=== PATIENT | female | born 1955 | race Caucasian/White ===

== ENCOUNTER 2017-11-25 16:14 | Emergency (ER) | payer MEDICARE, OTHER ==
[~2017-11-25] VITALS: Ht 157.5 cm; Wt 57.0 kg
[~2017-11-25 16:14] MED LIST: WHIT15OI
[2017-11-25 16:18] VITALS: BP 128/75; PULSE 72; RESP 18; TEMP 97.3; O2SAT 100
[2017-11-25] MEDS ORDERED: ALUMINUM/MAGNESIUM/SIMETH 30 ML CUP PO ONE (16:45)
[2017-11-25] MEDS ORDERED: ONDANSETRON ODT 4 MG TAB PO ONE (16:45)
[2017-11-25] MEDS ORDERED: LIDOCAINE VISCOUS 2% SOLN 15 ML UDC PO ONE (16:45)
[2017-11-25] MEDS ORDERED: LATA0.002 RIGHT EYE (16:56)
[2017-11-25] MEDS ORDERED: PRED1SUS LEFT EYE (16:56)
[2017-11-25] MEDS ORDERED: ATRO1SOL11 LEFT EYE (16:56)
[2017-11-25] MEDS ORDERED: DORZ2SOL15 RIGHT EYE (16:56)
--- NOTE | 2017-11-25 16:56 | PD ---
HPI Chief Complaint: Abdominal Pain Time Seen by Provider: 16:30 Travel History International Travel<30 days: No Contact w/Intl Traveler<30days: No Traveled to known affect area: No History of Present Illness HPI 61yo F with PMH of ectopic and glaucoma here with c/o abdominal pain since 9am. Pt said pain is epigastric but it radiates out. It is sharp, constant. +Nausea and vomiting. Denies any fever, chest pain, sob, dysuria, hematuria, diarrhea, vaginal discharge, focal weakness or numbness. Pt did not take anything for pain at home. PFSH Past Medical History ?: Not Ectopic : Yes (AGE 35) Social History Alcohol Use: Yes (SOCIALLY) Tobacco Use: Yes ([employer]) Substance Use: No Allergies-Medications (Allergen,Severity, Reaction): Coded Allergies: niacin (Verified Allergy, Intermediate, 11/25/17) BLADDER PAIN Uncoded Allergies: CITRIS FRUITS (Allergy, Severe, Itching, 03/12/14) VITAMIN B (Allergy, Intermediate, 11/25/17) BLADDER PAIN Reported Meds & Prescriptions Reported Meds & Active Scripts Active Omeprazole 40 Mg Cap 40 Mg PO DAILY 5 Days Zofran Odt (Ondansetron Odt) 4 Mg Tab 4 Mg SL Q12HR PRN Bactrim DS (Sulfamethoxazole-Trimethoprim) 800-160 Mg Tab 1 Tab PO BID Reported Dorzolamide-Timolol Opth Drops 22.3-6.8 Mg/Ml Soln 1 Drop RIGHT EYE BID Latanoprost Opth Drops (Latanoprost) 0.005% Drops 1 Drop RIGHT EYE HS Refrigerate until opened. Atropine Opth Drops 1% Soln 1 Drop LEFT EYE Q12H Pred Forte Opth 1% (Prednisolone Acetate Opth 1%) 1% Susp 1 Drop LEFT EYE QID Review of Systems Except as stated in HPI: all other systems reviewed are Neg Physical Exam Narrative GENERAL: 61yo F not in distress. SKIN: Focused skin assessment warm/dry. HEAD: Atraumatic. Normocephalic. EYES: Pupils equal and round. No scleral icterus. No injection or drainage. ENT: No nasal bleeding or discharge. Mucous membranes pink and moist. NECK: Trachea midline. No JVD. CARDIOVASCULAR: Regular rate and rhythm. No murmur appreciated. RESPIRATORY: No accessory muscle use. Clear to auscultation. Breath sounds equal bilaterally. GASTROINTESTINAL: Abdomen soft, +TTP epigastric region. Mild LUQ ttp. No rebound tenderness or guarding. MUSCULOSKELETAL: No obvious deformities. No clubbing. No cyanosis. No edema. NEUROLOGICAL: Awake and alert. No obvious cranial nerve deficits. Motor grossly within normal limits. Normal speech. PSYCHIATRIC: Appropriate mood and affect; insight and judgment normal. Data Data Last Documented VS Vital Signs Date Time Temp Pulse Resp B/P (MAP) Pulse Ox O2 Delivery O2 Flow Rate FiO2 11/25/17 19:02 18 11/25/17 18:28 76 124/75 (91) 98 Room Air 11/25/17 16:18 97.3 Orders Orders Complete Blood Count With Diff (11/25/17 16:39) Comprehensive Metabolic Panel (11/25/17 16:39) Lipase (11/25/17 16:39) Urinalysis - C+S If Indicated (11/25/17 16:39) Al-Mag Hy-Si 40-40-4 Mg/Ml Liq (Mag-Al P (11/25/17 16:45) Lidocaine 2% Viscous (Xylocaine 2% Visco (11/25/17 16:45) Ondansetron Odt (Zofran Odt) (11/25/17 16:45) Ct Abd/Pel W Iv Contrast(Rout) (11/25/17 ) Ketorolac Inj (Toradol Inj) (11/25/17 18:00) Urine Culture (11/25/17 17:55) Iohexol 350 Inj (Omnipaque 350 Inj) (11/25/17 18:41) Sulfamet-Trimeth Ds 800-160 Mg (Bactrim (11/25/17 19:00) Ed Discharge Order (11/25/17 19:04) Labs Laboratory Tests Test 11/25/17 16:50 11/25/17 17:55 White Blood Count 13.3 TH/MM3 Red Blood Count 5.07 MIL/MM3 Hemoglobin 14.7 GM/DL Hematocrit 44.3 % Mean Corpuscular Volume 87.2 FL Mean Corpuscular Hemoglobin 29.0 PG Mean Corpuscular Hemoglobin Concent 33.2 % Red Cell Distribution Width 11.7 % Platelet Count 263 TH/MM3 Mean Platelet Volume 8.1 FL Neutrophils (%) (Auto) 86.2 % Lymphocytes (%) (Auto) 9.6 % Monocytes (%) (Auto) 2.6 % Eosinophils (%) (Auto) 1.0 % Basophils (%) (Auto) 0.6 % Neutrophils # (Auto) 11.5 TH/MM3 Lymphocytes # (Auto) 1.3 TH/MM3 Monocytes # (Auto) 0.3 TH/MM3 Eosinophils # (Auto) 0.1 TH/MM3 Basophils # (Auto) 0.1 TH/MM3 CBC Comment DIFF FINAL Differential Comment Blood Urea Nitrogen 12 MG/DL Creatinine 0.78 MG/DL Random Glucose 110 MG/DL Total Protein 7.6 GM/DL Albumin 4.0 GM/DL Calcium Level 9.3 MG/DL Alkaline Phosphatase 98 U/L Aspartate Amino Transf (AST/SGOT) 23 U/L Alanine Aminotransferase (ALT/SGPT) 29 U/L Total Bilirubin 1.2 MG/DL Sodium Level 140 MEQ/L Potassium Level 3.5 MEQ/L Chloride Level 105 MEQ/L Carbon Dioxide Level 25.6 MEQ/L Anion Gap 9 MEQ/L Estimat Glomerular Filtration Rate 76 ML/MIN Lipase 132 U/L Urine Color YELLOW Urine Turbidity CLOUDY Urine pH 8.0 Urine Specific [place] 1.015 Urine Protein NEG mg/dL Urine Glucose (UA) NEG mg/dL Urine Ketones 40 mg/dL Urine Occult Blood NEG Urine Nitrite NEG Urine Bilirubin NEG Urine Urobilinogen 0.2 MG/DL Urine Leukocyte Esterase SMALL Urine RBC 0-3 /hpf Urine WBC 9-14 /hpf Urine Squamous Epithelial Cells 0-5 /hpf Urine Amorphous Sediment LARGE Urine Bacteria FEW /hpf Microscopic Urinalysis Comment CULTURE INDICATED MDM Medical Decision Making Medical Screen Exam Complete: Yes Emergency Medical Condition: Yes Differential Diagnosis Pancreatitis vs. gastritis vs. peptic ulcer disease vs. colitis Narrative Course 61yo F with epigastric abdominal pain, nausea and vomiting. Labs reviewed, mild leukocytosis at 13.3. Total bilirubin mildly elevated at 1.2, may be secondary to dehydration. LFTs normal. Lipase normal. UA showed WBC 9-14. Culture indicated. Will cover with antibiotics. CT a/p negative. Pt reevaluated at bedside and feels better. No longer nauseous and pain resolved. Tolerating PO. Return precautions given. Diagnosis Primary Impression: UTI (urinary tract infection) Qualified Codes: N39.0 - Urinary tract infection, site not specified Patient Instructions: General Instructions Departure Forms: Tests/Procedures Additional Instructions: Please follow up with your primary care physician in 2-3 days. Please eat a bland diet as tolerated. Return to the ED if symptoms worsen. Med/Other Pt SpecificInfo: Prescription(s) given Scripts Omeprazole (Omeprazole) 40 Mg Cap 40 MG PO DAILY for 5 Days, #5 CAP 0 Refills Prov: Jennifer Goetz DO 11/25/17 Ondansetron Odt (Zofran Odt) 4 Mg Tab 4 MG SL Q12HR Y for Nausea/Vomiting, #6 TAB 0 Refills Prov: Jennifer Goetz DO 11/25/17 Sulfamethoxazole-Trimethoprim (Bactrim DS) 800-160 Mg Tab 1 TAB PO BID for Infection, #14 TAB 0 Refills Prov: Jennifer Goetz DO 11/25/17 Disposition: 01 DISCHARGE HOME Condition: Stable Jennifer Goetz DO Nov 25, 2017 16:56
[2017-11-25 17:01] LABS: AUTOMATED NEUTROPHIL # 11.5 TH/MM3 (1.8-7.7); BASOPHIL # 0.1 TH/MM3 (0-0.2); BASOPHIL % 0.6 % (0.0-2.0); EOSINOPHIL # 0.1 TH/MM3 (0-0.4); HEMATOCRIT 44.3 % (35.0-46.0); HEMOGLOBIN 14.7 GM/DL (11.6-15.3); LYMPH % 9.6 % (9.0-44.0); LYMPHOCYTE # 1.3 TH/MM3 (1.0-4.8); MEAN CELL VOLUME 87.2 FL (80.0-100.0); MEAN CORPUSCULAR HGB CONC 33.2 % (32.0-36.0); MEAN PLATELET VOLUME 8.1 FL (7.0-11.0); MONO % 2.6 % (0.0-8.0); MONOCYTE # 0.3 TH/MM3 (0-0.9); NEUT % 86.2 % (16.0-70.0); PLATELET COUNT 263 TH/MM3 (150-450); RED BLOOD COUNT 5.07 MIL/MM3 (4.00-5.30); RED CELL DISTRIBUTION WIDTH 11.7 % (11.6-17.2); WHITE BLOOD COUNT 13.3 TH/MM3 (4.0-11.0)
[2017-11-25 17:06] VITALS: BP 128/74; PULSE 74; RESP 16; O2SAT 96
[2017-11-25 17:16] LABS: CHLORIDE 105 MEQ/L (98-107); SODIUM (NA) 140 MEQ/L (136-145)
[2017-11-25 17:20] LABS: CALCIUM 9.3 MG/DL (8.5-10.1)
[2017-11-25 17:21] LABS: BICARBONATE 25.6 MEQ/L (21.0-32.0); BLOOD UREA NITROGEN 12 MG/DL (7-18); GLUCOSE,RANDOM 110 MG/DL (74-106)
[2017-11-25 17:24] LABS: ALT (GPT) 29 U/L (10-53); AST (GOT) 23 U/L (15-37); CREATININE 0.78 MG/DL (0.50-1.00); GLOMERULAR FILTRATION RATE 76 ML/MIN (>89)
[2017-11-25 17:26] LABS: TOTAL BILIRUBIN ADULT 1.2 MG/DL (0.2-1.0); TOTAL PROTEIN 7.6 GM/DL (6.4-8.2)
[2017-11-25 17:27] LABS: ALKALINE PHOSPHATASE 98 U/L (45-117)
[2017-11-25 17:41] VITALS: BP 126/68; PULSE 70; RESP 16; O2SAT 96
[2017-11-25 18:00] VITALS: BP 130/71; PULSE 78; RESP 16; O2SAT 98
[2017-11-25] MEDS ORDERED: KETOROLAC TROMETHAMINE 30 MG/ML (IVP) VIAL IV PUSH ONE (18:00)
[2017-11-25 18:02] LABS: BILIRUBIN, URINE NEG (NEG); BLOOD, URINE NEG (NEG); GLUCOSE,URINE NEG (NEG); KETONE, URINE 40 mg/dL (NEG); NITRITE,URINE NEG (NEG); URINE COLOR YELLOW (YELLW/STRAW); URINE LEUKOCYTE ESTERASE SMALL (NEG)
[2017-11-25 18:07] LABS: AMORPHOUS SEDIMENT, URINE LARGE; BACTERIA, URINE FEW /hpf; RBC, URINE 0-3 /hpf (0-3); SQUAMOUS EPITHELIAL CELL URINE 0-5 /hpf (0-5)
[2017-11-25 18:28] VITALS: BP 124/75; PULSE 76; RESP 16; O2SAT 98
[2017-11-25] MEDS ORDERED: IOHEXOL 350 MG/ML 10 ML VIAL (for RAD DIAG) IVCONTRAST ONE (18:41)
--- NOTE | 2017-11-25 18:52 | RADRPT ---
EXAM DATE: 11/25/2017 6:41 PM EDT AGE/SEX: 61 years / Female INDICATIONS: Epigastric pain. CLINICAL DATA: This is the patient's initial encounter. Patient reports that signs and symptoms have been present for 1 day and indicates a pain score of 8/10. MEDICAL/SURGICAL HISTORY: None. None. ORAL CONTRAST: No oral contrast ingested. RADIATION DOSE: 5.80 CTDI (mGy) COMPARISON: None . TECHNIQUE: Multiple contiguous axial images were obtained through the abdomen and pelvis following b olus infusion of 80 ml Omnipaque 350 (iohexol) nonionic water-soluble contrast as a single exam dos e. No oral contrast ingested. Using automated exposure control and adjustment of the mA and/or kV ac cording to patient size, radiation dose was kept as low as reasonably achievable to obtain optimal di agnostic quality images. DICOM format image data is available electronically for review and comparis on. FINDINGS: Lower Lungs: The visualized lower lungs are clear. Liver: The liver has a homogeneous density without space-occupying lesion. There is no dilation of th e biliary tree. Spleen: Homogeneous density without enlargement. Pancreas: Unremarkable without mass or calcification. Kidneys: Normal in size and shape. No evidence of mass or hydronephrosis. Adrenal Glands: Unremarkable. Aorta: The aorta and proximal iliac vessels are grossly unremarkable without aneurysmal dilation. Bowel/Mesentery: The bowel loops are grossly unremarkable. The cecum and sigmoid colon have a normal configuration. Abdominal Wall: Intact. Retroperitoneum: No evidence of adenopathy in the retrocrural, para-aortic, or deep pelvic regions. Bladder: Contours are smooth. Reproductive Organs: No abnormal masses or calcifications seen. Inguinal: The inguinal region is unremarkable without evidence of adenopathy. Bony Structures: Unremarkable. CONCLUSION: 1. Negative CT Abdomen and Pelvis with contrast. Electronically signed by: Reji Garrett MD 11/25/2017 6:51 PM EDT
[2017-11-25] MEDS ORDERED: SULFAMETHOXAZOLE-TRIMETHOPRIM DS 800-160 MG TAB PO ONE (19:00)
[2017-11-25] MEDS ORDERED: BACT800T5 PO (19:00)
[2017-11-25] MEDS ORDERED: ZOFR4TAB3 SL (19:00)
[2017-11-25] MEDS ORDERED: OMEP40CA2 PO (19:04)
[2017-11-25 19:20] VITALS: BP 116/75
== END 2017-11-25 19:43 | disposition home or self-care (01) ==
LOC: PHED 16:14
DX: N39.0 Urinary tract infection, site not specified (principal); D72.829 Elevated white blood cell count, unspecified; R10.13 Epigastric pain; R11.2 Nausea with vomiting, unspecified; Z72.0 Tobacco use
CPT/HCPCS: 74177; 80053; 81001; 83690; 85025; 87086; 96374; 99285; J1885; Q9967